=== PATIENT | female | born 2000 | race Caucasian/White ===

== ENCOUNTER 2023-07-27 17:29 | Emergency (ER) | payer BC, SELFPAY ==
[2023-07-27 17:54] VITALS: BP 116/77; PULSE 98; RESP 16; TEMP 37.7; O2SAT 98; BMI 22.8
--- NOTE | 2023-07-27 18:56 | PC.NURSE ---
pt c/o bilat groin lymph nodes swollen and painful last 2-3 days gradually getting worse. has been dealing with some URI sx lately but no other sx. told by UC to get checked out at ER.
--- NOTE | 2023-07-27 19:16 | ED.GENADUL1 ---
HPI - General Adult General Chief complaint: Skin/Abscess/Foreign Body Stated complaint: LOWER PAIN Time Seen by Provider: 07/27/23 18:14 Source: patient Mode of arrival: walk-in Limitations: no limitations History of Present Illness HPI narrative: Patient is a very pleasant 23-year-old female who presents to the emergency department for bilateral inguinal lymphadenopathy. Patient states for the last 3 days she has had very minimal nasal congestion with hot and cold chills. She has had no objective fevers, vomiting or diarrhea. She denies abdominal pain, urinary symptoms. She states she recently had a bikini wax and was concerned that the swelling in the groin may be due to an infection. She has not noticed any wounds, lesions or drainage. She states she first noticed the right groin with swelling and tenderness and now has had swelling to the left groin. She went to urgent care and was referred to the ER. Related Data Previous Rx's Medication Instructions Recorded amoxicillin 875 mg-potassium 1 tab PO Q12H #20 tabs 07/27/23 clavulanate 125 mg tablet ketorolac 10 mg tablet 10 mg PO TID PRN pain #10 tabs 07/27/23 Allergies Allergy/AdvReac Type Severity Reaction Status Date / Time No Known Drug Allergies Allergy Verified 07/27/23 17:58 Review of Systems ROS Constitutional Reports: chills; Denies: fever Ears, nose, mouth, and throat Reports: nasal congestion; Denies: throat pain Cardiovascular Denies: chest pain Respiratory Denies: shortness of breath or cough Gastrointestinal Denies: nausea or vomiting Genitourinary Denies: painful urination Musculoskeletal Denies: back pain Integumentary/Breast Denies: rash Neurological Denies: headache Hematologic/Lymphatic Reports: enlarged lymph nodes PFSH PFS Social History Smoking status: Never smoker Exam Narrative Exam Narrative: Gen.: Awake, alert, in no distress Head: Normocephalic, atraumatic ENT: Moist mucous membranes Respiratory: No respiratory distress, lungs clear bilaterally Cardio: Regular rate and rhythm Gastrointestinal: Abdomen is soft, nondistended and nontender to palpation; bikini area is noted to have 2 small palpable swollen lymph nodes with no overlying erythema, open wounds or redness. No fluctuance noted. Extremities: Moves extremities equally Psych: Normal mood and affect Neuro: No focal neuro deficit Skin: Warm, dry, intact Constitutional Vital Signs, click to edit/add: Last Vital Signs Temp 99.8 F 07/27/23 17:54 Pulse 98 H 07/27/23 17:54 Resp 16 07/27/23 17:54 BP 116/77 07/27/23 17:54 Pulse Ox 98 07/27/23 17:54 O2 Del Method Room Air 07/27/23 17:54 Course Vital Signs Vital signs: Vital Signs Temperature 99.8 F 07/27/23 17:54 Pulse Rate 98 H 07/27/23 17:54 Respiratory Rate 16 07/27/23 17:54 Blood Pressure 116/77 07/27/23 17:54 Pulse Oximetry 98 07/27/23 17:54 Oxygen Delivery Method Room Air 07/27/23 17:54 Temperature 99.8 F 07/27/23 17:54 Pulse Rate 98 H 07/27/23 17:54 Respiratory Rate 16 07/27/23 17:54 Blood Pressure 116/77 07/27/23 17:54 Pulse Oximetry 98 07/27/23 17:54 Oxygen Delivery Method Room Air 07/27/23 17:54 Medical Decision Making MDM Narrative Medical decision making narrative: Patient with normal CBC, minimally elevated neutrophil count. She does have elevated CRP and sed rate. Monoscreen is negative. Patient was given education and reassurance about treatment for inguinal lymphadenopathy. She will be treated with Augmentin, Decadron in the ER and discharged home on Augmentin and NSAIDs. She was made aware that any lymph nodes that stay swollen past 3 to 4 weeks must be evaluated for biopsy. Follow-up with PCP, primary care referral given, return to the ER if symptoms change or worsen. Medical Records Medical records reviewed: Yes I reviewed the patient's medical records Lab Data Lab results reviewed: Yes I reviewed the patient's lab results Labs: Lab Results 07/27/23 Range/Units 19:32 WBC 10.9 (4.0-11.0) 10^3/uL RBC 4.42 (4.20-5.40) 10^6/uL Hgb 13.8 (12.0-16.0) g/dL Hct 40.5 (36.0-48.0) % MCV 91.6 (81.0-99.0) fL MCH 31.2 (26.7-34.0) pg MCHC 34.1 (29.9-35.2) g/dL RDW 11.2 (11.0-15.0) % Plt Count 244 (150-450) 10^3/uL MPV 8.9 L (9.5-13.5) fL Neut % (Auto) 77.1 H (43.0-75.0) % Lymph % (Auto) 13.5 L (20.5-60.0) % [place] % (Auto) 7.6 (1.7-12.0) % Eos % (Auto) 1.1 (0.9-7.0) % Baso % (Auto) 0.5 (0.2-2.0) % Neut # (Auto) 8.4 H (1.4-6.5) 10^3/uL Lymph # (Auto) 1.5 (1.2-3.8) 10^3/uL [place] # (Auto) 0.8 (0.3-0.8) 10^3/uL Eos # (Auto) 0.1 (0.0-0.7) 10^3/uL Baso # (Auto) 0.1 (0.0-0.1) 10^3/uL Abs Immat Gran (auto) 0.02 (0.00-0.03) 10^3/uL Imm/Tot Granulo (auto) 0.2 (0.0-0.5) % ESR 52 H (<=20) mm/hr C-Reactive Protein 8.72 H (<=0.30) mg/dL Monoscreen Negative (NEGATIVE) Discharge Plan Discharge Chief Complaint: Skin/Abscess/Foreign Body Clinical Impression: Inguinal lymphadenopathy Patient Disposition: Home, Self-Care Time of Disposition Decision: 20:20 Condition: Good Prescriptions / Home Meds: New ketorolac 10 mg tablet 10 mg PO TID PRN (Reason: pain) Qty: 10 0RF amoxicillin-pot clavulanate 875-125 mg tablet 1 tab PO Q12H Qty: 20 0RF Instructions: Lymphadenopathy (ED) Stand Alone Forms: Portal Instructions Referrals: Physician,Non-Staff, MD [Primary Care Provider] - 1 week
[2023-07-27 19:50] LABS: Basophils Absolute Auto 0.1 10^3/uL (0.0-0.1); Basophils Percent Auto 0.5 % (0.2-2.0); Eosinophils Absolute Auto 0.1 10^3/uL (0.0-0.7); Eosinophils Percent Auto 1.1 % (0.9-7.0); Hematocrit 40.5 % (36.0-48.0); Hemoglobin 13.8 g/dL (12.0-16.0); Immature Granulocytes Abs Auto 0.02 10^3/uL (0.00-0.03); Immature Granulocytes Pct Auto 0.2 % (0.0-0.5); Lymphocytes Absolute Auto 1.5 10^3/uL (1.2-3.8); Lymphocytes Percent Auto 13.5 % (20.5-60.0); Mean Corpuscular HGB Conc 34.1 g/dL (29.9-35.2); Mean Corpuscular Hemoglobin 31.2 pg (26.7-34.0); Mean Corpuscular Volume 91.6 fL (81.0-99.0); Mean Platelet Volume 8.9 fL (9.5-13.5); Monocytes Absolute Auto 0.8 10^3/uL (0.3-0.8); Monocytes Percent Auto 7.6 % (1.7-12.0); Neutrophils Absolute Auto 8.4 10^3/uL (1.4-6.5); Neutrophils Percent Auto 77.1 % (43.0-75.0); Platelet Count 244 10^3/uL (150-450); Red Blood Count 4.42 10^6/uL (4.20-5.40); Red Cell Distribution Width 11.2 % (11.0-15.0); White Blood Count 10.9 10^3/uL (4.0-11.0)
[2023-07-27 20:03] LABS: Erythrocyte Sedimentation Rate 52 mm/hr (<=20)
[2023-07-27 20:07] LABS: C Reactive Protein 8.72 mg/dL (<=0.30)
[2023-07-27 20:12] LABS: Mono Screen NEGATIVE (NEGATIVE)
[2023-07-27] MEDS: DEXAMETHASONE SOD PHOS 10 MG/ML VIAL PO (20:43)
[2023-07-27] MEDS: AMOXICILLIN/POTASSIUM CLAV 1 TAB TABLET PO (20:43)
== END 2023-07-27 20:49 | disposition home or self-care (01) ==
PROVIDERS: Physician Assistant; Emergency Provider Internal Medicine
DX: R59.0 Localized enlarged lymph nodes (principal)
CPT/HCPCS: 36415; 85025; 85652; 86140; 86308; 99283; J1100